=== PATIENT | male | born 1965 | race Caucasian/White ===

== ENCOUNTER 2019-07-29 11:36 | Emergency (ER) | payer MEDICAID, SELFPAY ==
[~2019-07-29] VITALS: Ht 165.1 cm; Wt 90.9 kg
[~2019-07-29 11:36] MED LIST: ACET-66 PO; DOXY100T2 PO; GLIP2.5T17 PO; GUAI600T30 PO; METF-960 PO; OSEL75 GT
[2019-07-29 11:43] VITALS: BP 151/95
[2019-07-29 12:36] LABS: BASOPHILS % (AUTO) 0.9 % (0.0-2.0); EOSINOPHILS % (AUTO) 1.9 % (1.0-6.0); HEMOGLOBIN 16.6 g/dL (13.5-17.5); LYMPHOCYTES % (AUTO) 33.4 % (22.0-44.0); MEAN CORPUSCULAR HGB CONC 34.7 G/dL (31.0-37.0); MEAN CORPUSCULAR VOLUME 92 fL (80-100); MONOCYTES # (AUTO) 0.5 K/uL (0.1-1.0); MONOCYTES % (AUTO) 8.2 % (2.0-9.0); NEUTROPHILS # (AUTO) 3.4 K/uL (1.8-7.7); NEUTROPHILS % (AUTO) 55.6 % (40.0-70.0); PLATELET COUNT (AUTO) 107 K/uL (150-450); RED CELL DISTRIBUTION WIDTH 12.9 % (11.5-14.5)
[2019-07-29 12:57] LABS: ANION GAP 10 mmol/L (8-16); CALCIUM, TOTAL 8.9 mg/dL (8.8-10.5); CARBON DIOXIDE 29 mmol/L (22-29); CHLORIDE 100 mmol/L (98-107); CREATININE 0.78 mg/dL (0.60-1.30); GLOMERULAR FILTR. RATE CALC > 60 mL/min (>60); GLUCOSE,RANDOM 195 mg/dL (70-110); POTASSIUM 5.1 mmol/L (3.5-5.1); SODIUM SERUM 139 mmol/L (136-145); UREA NITROGEN, BLOOD 5 mg/dL (7-18)
[2019-07-29 13:03] LABS: ALANINE AMINOTRANSFERASE 63 U/L (12-78); ALKALINE PHOSPHATASE 94 U/L (46-116); ASPARTATE AMINOTRANSFERASE 56 U/L (15-37); BILIRUBIN,TOTAL 0.6 mg/dL (0.1-1.0); TOTAL PROTEIN, SERUM 7.6 g/dL (6.4-8.2)
== END 2019-07-29 13:53 | disposition home or self-care (01) ==
LOC: EMS 11:38
DX: F32.9 Major depressive disorder, single episode, unspecified (principal); R45.851 Suicidal ideations; F17.210 Nicotine dependence, cigarettes, uncomplicated; Z59.0 Homelessness
CPT/HCPCS: 36415; 80053; 85025; 99285; 99406; G0480

== ENCOUNTER 2021-08-16 21:28 | Emergency (ER) | payer MEDICAID, OTHER ==
[~2021-08-16] VITALS: Ht 170.2 cm; Wt 79.5 kg
[2021-08-16 22:05] VITALS: BP 115/55
[2021-08-16] MEDS ORDERED: LIDOCAINE 1% 10 ML VIAL SQ ONE (22:30)
[2021-08-16] MEDS ORDERED: MORPHINE SULFATE 4 MG/ML SYRINGE IM ONE (22:30)
[2021-08-16] MEDS ORDERED: DiphenhydrAMINE HCL 50 MG/ML VIAL IM ONE (22:30)
[2021-08-16] MEDS ORDERED: DOXYCYCLINE HYCLATE 100 MG TABLET PO ONE (23:30)
[2021-08-16] MEDS ORDERED: CEPHALEXIN MONOHYDRATE 500 MG CAPSULE PO ONE (23:30)
[2021-08-17 15:18] LABS: GLUCOSE,POINT OF CARE 164 MG/DL (70-110)
== END 2021-08-16 23:36 | disposition home or self-care (01) ==
LOC: EMS 21:30
DX: L73.2 Hidradenitis suppurativa (principal)
CPT/HCPCS: 10060; 82962; 96372; 99284; J1200; J2270; J3490

== ENCOUNTER 2022-03-19 22:24 | Emergency (ER) | payer OTHER ==
[~2022-03-19] VITALS: Ht 170.2 cm; Wt 84.1 kg
[2022-03-19 23:37] LABS: BASOPHILS % (AUTO) 0.2 % (0.0-2.0); EOSINOPHILS % (AUTO) 2.6 % (1.0-6.0); HEMATOCRIT 41.3 % (41-53); LYMPHOCYTES # (AUTO) 2.8 K/uL (1.0-4.8); LYMPHOCYTES % (AUTO) 32.1 % (22.0-44.0); MEAN CORPUSCULAR HEMOGLOBIN 28.7 pg (26.0-34.0); MEAN CORPUSCULAR VOLUME 85 fL (80-100); MONOCYTES # (AUTO) 0.7 K/uL (0.1-1.0); MONOCYTES % (AUTO) 7.7 % (2.0-9.0); NEUTROPHILS # (AUTO) 5.1 K/uL (1.8-7.7); NEUTROPHILS % (AUTO) 57.4 % (40.0-70.0); PLATELET COUNT (AUTO) 163 K/uL (150-450); RED BLOOD CELL COUNT(AUTO) 4.88 MIL/uL (4.50-5.90); RED CELL DISTRIBUTION WIDTH 14.5 % (11.5-14.5)
[2022-03-19 23:44] LABS: ANION GAP 7 mmol/L (8-16); CALCIUM, TOTAL 8.2 mg/dL (8.8-10.5); CARBON DIOXIDE 27 mmol/L (22-29); CHLORIDE 103 mmol/L (98-107); CREATININE 0.62 mg/dL (0.60-1.30); GLOMERULAR FILTR. RATE CALC > 60 mL/min (>60); GLUCOSE,RANDOM 208 mg/dL (70-110); SODIUM SERUM 137 mmol/L (136-145); UREA NITROGEN, BLOOD 12 mg/dL (7-18)
[2022-03-19 23:50] LABS: ALANINE AMINOTRANSFERASE 37 U/L (12-78); ALBUMIN 3.3 g/dL (3.4-5.0); ALKALINE PHOSPHATASE 127 U/L (46-116); ASPARTATE AMINOTRANSFERASE 32 U/L (15-37); BILIRUBIN,TOTAL 0.5 mg/dL (0.1-1.0); TOTAL PROTEIN, SERUM 6.6 g/dL (6.4-8.2)
[2022-03-20] MEDS ORDERED: ACETAMINOPHEN 500 MG TABLET PO ONE (00:30)
[2022-03-20 02:45] VITALS: BP 129/81
[2022-03-20] MEDS ORDERED: POLY238P PO (03:11)
[2022-03-20] MEDS ORDERED: ACET-66 PO (03:11)
== END 2022-03-20 03:41 | disposition home or self-care (01) ==
LOC: EMS 22:52
DX: R10.32 Left lower quadrant pain (principal); K80.80 Other cholelithiasis without obstruction; E11.65 Type 2 diabetes mellitus with hyperglycemia; F17.210 Nicotine dependence, cigarettes, uncomplicated; F14.90 Cocaine use, unspecified, uncomplicated; F15.90 Other stimulant use, unspecified, uncomplicated
CPT/HCPCS: 36415; 74176; 80053; 84484; 85025; 99284; G0480

== ENCOUNTER 2022-05-05 11:00 | Emergency (ER) | payer OTHER ==
[~2022-05-05] VITALS: Ht 170.2 cm; Wt 79.5 kg
[~2022-05-05 11:00] MED LIST changes: -DOXY100T2 PO; -GLIP2.5T17 PO; -GUAI600T30 PO; -METF-960 PO; -OSEL75 GT; +POLY238P PO
[2022-05-05 11:38] VITALS: BP 125/69
== END 2022-05-05 16:32 | disposition left against medical advice (07) ==
LOC: EMS 11:00
DX: Z53.21 Procedure and treatment not carried out due to patient leaving prior to being seen by health care provider (principal)
CPT/HCPCS: 82962

== ENCOUNTER 2022-05-13 13:18 | Emergency (ER) | payer OTHER ==
[~2022-05-13] VITALS: Ht 170.2 cm; Wt 79.5 kg
[2022-05-13 14:50] VITALS: BP 132/81
== END 2022-05-13 15:06 | disposition home or self-care (01) ==
LOC: EMS 13:21
DX: K40.90 Unilateral inguinal hernia, without obstruction or gangrene, not specified as recurrent (principal); E11.9 Type 2 diabetes mellitus without complications; K80.80 Other cholelithiasis without obstruction; F17.210 Nicotine dependence, cigarettes, uncomplicated; F14.90 Cocaine use, unspecified, uncomplicated; F15.90 Other stimulant use, unspecified, uncomplicated
CPT/HCPCS: 99283; Z7502